=== PATIENT | female | born 1955 ===

== ENCOUNTER → 2019-12-27 | Outpatient (CLI) | payer BC ==
--- NOTE | 2019-12-27 13:54 | KCIC ---
EXAM: Right knee, 3 views. HISTORY: Pain. COMPARISON: None. FINDINGS: 3 views of the right knee are obtained. There is mild medial compartment joint space narrowing and spurring. There is a small joint effusion. There is no fracture, dislocation or subluxation. IMPRESSION: 1. Mild medial compartment osteoarthritis of the right knee. 2. Small right knee effusion. Electronically signed by: Asia Jeffers MD (12/27/2019 1:51 PM) [email or web address]
== END | disposition home or self-care (01) ==
LOC: KCIC MAMMO 11:05
PROVIDERS: ATTEND Family Medicine
DX: Z12.31 Encounter for screening mammogram for malignant neoplasm of breast (principal); N63.20 Unspecified lump in the left breast, unspecified quadrant; N63.10 Unspecified lump in the right breast, unspecified quadrant
CPT/HCPCS: 77063; 77067